=== PATIENT | female | born 1975 | race Caucasian/White ===

== ENCOUNTER 2018-03-10 22:49 | Emergency (ER) | payer SELFPAY ==
[~2018-03-10] VITALS: Ht 165.1 cm; Wt 127.1 kg
[~2018-03-10 22:49] MED LIST: ALLOPURINOL300 MG PO; AMITRIPTYLINE H50 MG PO; LYRICA50 MG PO; MOTRIN800 MG PO; NORCO 7.5/321 TABLET PO; VALIUM5 MG PO
[2018-03-11] MEDS ORDERED: CLARITIN10 M3 PO (00:54)
[2018-03-11] MEDS ORDERED: ZITHROMAX500 MG PO (00:54)
[2018-03-11] MEDS ORDERED: AFRIN,GENASAL D15 ML BOTH NARES (00:54)
[2018-03-11 01:05] VITALS: BP 147/90
== END 2018-03-11 01:06 | disposition home or self-care (01) ==
LOC: EME 22:49
DX: J06.9 Acute upper respiratory infection, unspecified (principal); J45.909 Unspecified asthma, uncomplicated; Z91.048 Other nonmedicinal substance allergy status
CPT/HCPCS: 87651 90; 99281; 99284